=== PATIENT | female | born 1980 | race Asian ===

== ENCOUNTER 2018-01-22 22:08 | Emergency (ER) | payer SELFPAY ==
[~2018-01-22] VITALS: Ht 182.9 cm; Wt 68.0 kg
[2018-01-22 22:30] VITALS: Ht 182.9 cm; Wt 68.0 kg
[2018-01-22 22:48] LABS: BASOPHIL % 0.4 % (0-2); PLATELET COUNT 287 x10^3mcL (130-400); RED CELL DISTRIBUTION WIDTH 13.8 % (11.5-14.5)
[2018-01-22 22:53] LABS: CALCIUM 9.3 mg/dL (8.5-10.1); CARBON DIOXIDE 27.3 mmol/L (21-32); CHLORIDE SERUM 100 mmol/L (98-107); CREATININE SERUM 1.2 mg/dL (0.6-1.0); GFR1 53 mL/min; GLUCOSE SERUM 88 mg/dL (74-106); POTASSIUM SERUM 3.3 mmol/L (3.5-5.1); SODIUM SERUM 136 mmol/L (136-145)
[2018-01-22 22:57] LABS: ALKALINE PHOSPHATASE 73 U/L (46-116); ALT/SGPT 17 U/L (14-59); AST/SGOT 13 U/L (15-37); BILIRUBIN TOTAL 0.4 mg/dL (0.20-1.00)
[2018-01-22 23:00] LABS: TOTAL PROTEIN, SERUM 8.3 g/dL (6.4-8.2)
[2018-01-22 23:57] LABS: AMPHETAMINE QUAL UR NONE DETECTED (See below)
[2018-01-23 09:01] VITALS: BP 96/70
== END 2018-01-23 09:01 | disposition home or self-care (01) ==
LOC: ED 22:08
PROVIDERS: Emergency Medicine
DX: F32.9 Major depressive disorder, single episode, unspecified (principal); I10 Essential (primary) hypertension; Z94.0 Kidney transplant status
CPT/HCPCS: 36415; G0480